=== PATIENT | male | born 1980 ===

== ENCOUNTER 2017-07-23 09:26 | Emergency (ER) | payer BC ==
[2017-07-23 09:33] VITALS: O2SAT 97
[2017-07-23 09:34] VITALS: BMI 29.8
[2017-07-23 10:39] LABS: BASO % 0.4 % (0.0-2.0); EOS % 0.6 % (0.0-4.0); HEMATOCRIT 49.2 % (35.0-51.0); LYMPH # 1.4 K/uL (1.0-4.3); LYMPH % 20.5 % (20.0-40.0); MEAN CELL VOLUME 86.7 fl (80.0-94.0); MEAN CORPUSCULAR HGB CONC 33.4 g/dL (33.0-37.0); MEAN PLATELET VOLUME 8.9 fl (7.2-11.7); MONO # 0.6 K/uL (0.0-0.8); MONO % 9.3 % (0.0-10.0); NEUT # 4.7 K/uL (1.8-7.0); NEUT % 69.2 % (50.0-75.0); NRBC % 0.9 % (0.0-0.0); RED CELL DISTRIBUTION WIDTH 13.7 % (11.5-14.5); WHITE BLOOD COUNT 6.8 K/uL (4.8-10.8)
[2017-07-23] MEDS ORDERED: Sodium Chloride 0.9% 1,000 ML IV STA (10:40)
[2017-07-23 10:42] LABS: RBC URINE 1 /hpf (0-3); URINE BACTERIA RARE (<OCC); URINE BILIRUBIN NEGATIVE (NEGATIVE); URINE BLOOD NEGATIVE (NEGATIVE); URINE COLOR AMBER (YELLOW); URINE GLUCOSE (UA) NEG (Normal); URINE KETONE NEGATIVE (NEGATIVE); URINE LEUKOCYTE ESTERASE NEG Leu/uL (Negative); URINE PROTEIN 30 mg/dL (NEGATIVE); URINE UROBILINOGEN 0.2-1.0 mg/dL (0.2-1.0); WBC URINE < 1 /hpf (0-5)
[2017-07-23 10:53] LABS: ALB/GLOB RATIO 1.3 (1.0-2.1); ALKALINE PHOSPHATASE 46 U/L (38-126); ALT/SGPT 58 U/L (21-72); AST/SGOT 50 U/L (17-59); BILIRUBIN,TOTAL 0.7 mg/dl (0.2-1.3); BLOOD UREA NITROGEN 12 mg/dl (9-20); CARBON DIOXIDE 27 mmol/L (22-30); CHLORIDE 103 mmol/L (98-107); GFR AFRICAN-AMERICAN > 60; GLUCOSE,RANDOM 102 mg/dL (75-110); SODIUM 139 mmol/l (132-148); TOTAL PROTEIN 7.4 G/DL (6.3-8.2)
--- NOTE | 2017-07-23 12:16 | ED PDOC ---
HPI: Fever Fever Onset Was: 07/20/17 Recent Sick Contacts: No Did The Patient Have A Seizure Today: No Symptoms Associated With Fever: None Additional Comments: Patient is a 37 y/o male with no significant past medical history presenting to the emergency department for fever and body aches x 4 days. Reports returning from a weekend vacation in [facility] [place] [facility]. Denies cough, shortness of breath, headache, rash, abdominal pain, any raw food exposure, travel to wooded areas of [place], known sick contacts, and other complaints. PCP: none provided. Past Medical History Reviewed: Historical Data, Nursing Documentation, Vital Signs Vital Signs: Last Vital Signs Temp 97.2 F L 07/23/17 09:33 Pulse 81 07/23/17 09:33 Resp 20 07/23/17 09:33 BP 129/86 07/23/17 09:33 Pulse Ox 97 07/23/17 12:30 - Medical History PMH: No Chronic Diseases - Surgical History Surgical History: No Surg Hx - Family History Family History: States: Unknown Family Hx - Living Arrangements Living Arrangements: With Family - Social History Current smoker - smoking cessation education provided: No Ex-Smoker (has not smoked in the last 12 months): No Alcohol: Social Drugs: Denies - Allergies Allergies/Adverse Reactions: Allergies Allergy/AdvReac Type Severity Reaction Status Date / Time No Known Allergies Allergy Verified 07/23/17 09:42 Review of Systems ROS Statement: Except As Marked, All Systems Reviewed And Found Negative Constitutional: Positive for: Fever, Other (body aches) Respiratory: Negative for: Cough, Shortness of Breath Gastrointestinal: Negative for: Abdominal Pain Skin: Negative for: Rash Neurological: Negative for: Headache Physical Exam - Reviewed Nursing Documentation Reviewed: Yes Vital Signs Reviewed: Yes - Physical Exam Appears: Positive for: Non-toxic, No Acute Distress (with diffuse body aches that include his joints) Head Exam: Positive for: ATRAUMATIC, NORMAL INSPECTION, NORMOCEPHALIC Skin: Positive for: Normal Color, Warm, Dry. Negative for: Rash Eye Exam: Positive for: Normal appearance ENT: Positive for: Pharyngeal Erythema (mild) Neck: Positive for: Normal (with no nuchal rigidity), Painless ROM, Supple Cardiovascular/Chest: Positive for: Regular Rate, Rhythm. Negative for: Murmur Respiratory: Positive for: Normal Breath Sounds. Negative for: Accessory Muscle Use, Respiratory Distress Gastrointestinal/Abdominal: Positive for: Normal Exam, Soft. Negative for: Tenderness Extremity: Positive for: Normal ROM. Negative for: Pedal Edema Neurologic/Psych: Positive for: Alert, Oriented (x3) - Laboratory Results Result Diagrams: 07/23/17 09:50 07/23/17 09:50 - ECG O2 Sat by Pulse Oximetry: 97 (RA) Pulse Ox Interpretation: Normal Medical Decision Making Medical Decision Making: Time: 09:50 Initial impression: Fever and body aches Initial plan: Toradol 30 mg IV Normal Saline 1 L IV Blood Culture Throat Culture Reevaluation --------- labs reviewed, normal WBC, normal UA, normal chem. Flu/strep probes negative. Very mild elev CK, treated w 1L IVF. Cultures sent. Afebrile and well appearing in ED, now >4hrs since last reported antipyretic. Denies cough, chest pain or SOB. Denies headache, neck pain or rash. Feels better in ED over ~3hr observation. [employer] info for [employer] travel queried, no travel health alerts noted. Followup PMD/ [employer] for further testing if symptoms persist or return to ED for any new symptoms, high fever, rash, headache or any concern. Scribe Attestation: Documented by Ella Alston, acting as a scribe for Vu Alanis DO. Provider Scribe Attestation: All medical record entries made by the Scribe were at my direction and personally dictated by me. I have reviewed the chart and agree that the record accurately reflects my personal performance of the history, physical exam, medical decision making, and the department course for this patient. I have also personally directed, reviewed, and agree with the discharge instructions and disposition. Disposition - Clinical Impression Clinical Impression: Fever, Rhabdomyolysis - Patient ED Disposition Is Patient to be Admitted: No Counseled Patient/Family Regarding: Studies Performed, Need For Followup - Disposition Referrals: Osiel Smith MD [Staff Provider] - Disposition: Routine/Home Disposition Time: 12:05 Condition: STABLE Additional Instructions: Drink plenty of fluids, use tylenol 650mg every 4 hrs as needed for pain or fever. See PMD in 2-3 days if symptoms persist. Return to ER for any new or worsening symptoms. Instructions: Fever in Adults (ED), Rhabdomyolysis (ED) Forms: [employer] (Slovak)
--- NOTE | 2017-07-23 12:21 | ED PDOC ---
HPI: General Adult Time Seen by Provider: 07/23/17 09:51 Chief Complaint (Nursing): Fever Chief Complaint (Provider): Fever and body aches History Per: Patient History/Exam Limitations: no limitations Onset/Duration Of Symptoms: Days (4) Past Medical History Vital Signs: Last Vital Signs Temp 97.2 F L 07/23/17 09:33 Pulse 81 07/23/17 09:33 Resp 20 07/23/17 09:33 BP 129/86 07/23/17 09:33 Pulse Ox 97 07/23/17 12:16 - Allergies Allergies/Adverse Reactions: Allergies Allergy/AdvReac Type Severity Reaction Status Date / Time No Known Allergies Allergy Verified 07/23/17 09:42 - Laboratory Results Result Diagrams: 07/23/17 09:50 07/23/17 09:50 - ECG O2 Sat by Pulse Oximetry: 97 Medical Decision Making Medical Decision Making: Time: 09:50 Initial impression: Fever and body aches Initial plan: Toradol 30 mg IV Normal Saline 1 L IV Blood Culture Throat Culture Reevaluation Scribe Attestation: Documented by Ella Alston, acting as a scribe for Vu Alanis DO. Provider Scribe Attestation: All medical record entries made by the Scribe were at my direction and personally dictated by me. I have reviewed the chart and agree that the record accurately reflects my personal performance of the history, physical exam, medical decision making, and the department course for this patient. I have also personally directed, reviewed, and agree with the discharge instructions and disposition. Disposition - Clinical Impression Clinical Impression: Fever, Rhabdomyolysis - Disposition Referrals: Osiel Smith MD [Staff Provider] - Condition: STABLE Additional Instructions: Drink plenty of fluids, use tylenol 650mg every 4 hrs as needed for pain or fever. See PMD in 2-3 days if symptoms persist. Return to ER for any new or worsening symptoms. Instructions: Fever in Adults (ED), Rhabdomyolysis (ED) Forms: [employer] (Swedish)
[2017-07-23 13:38] VITALS: BP 125/76; PULSE 55; RESP 16; TEMP 98.6
== END 2017-07-23 12:11 | disposition home or self-care (01) ==
LOC: H.ER 09:26
DX: R50.9 Fever, unspecified (principal); M62.82 Rhabdomyolysis
CPT/HCPCS: 80053; 81003; 82550; 85025; 87040; 87070; 87430; 87804; 96360; 99285; J1885; J7040